=== PATIENT | female | born 1980 | race Caucasian/White ===

== ENCOUNTER → 2017-08-20 | Outpatient (CLI) | payer BC | END | disposition home or self-care (01) | LOC: LABWHC1 11:53 | PROVIDERS: ATTEND Otolaryngology | DX: J30.89 Other allergic rhinitis (principal) | CPT/HCPCS: 36415 ==

== ENCOUNTER → 2018-01-21 | Outpatient (CLI) | payer BC ==
--- NOTE | 2018-01-21 11:15 | US ---
EXAMINATION TYPE: US thyroid st tissue head/neck DATE OF EXAM: 01/21/2018 COMPARISON: 12/09/2012 CLINICAL HISTORY: hypothyroid E03.9, hx thyroid nodules E04.1,. Thyroid nodules, gael's disease , history of thyroid biopsy, on thyroid meds GLAND SIZE: Right Lobe: 5.7 x 1.5 x 1.9 cm Overall Parenchyma: heterogenous Left Lobe: 6.2 x 1.5 x 2.0 cm Overall Parenchyma: heterogeneous Isthmus Thickness: 0.7 cm NODULES RIGHT: # of nodules measured on right: 0 LEFT: # of nodules measured on left: 0 ISTHMUS: # of nodules measured in the isthmus: 0 Bilateral neck scanned, multiple small bilateral hypoechoic structures seen with largest on right harrison suring 1.1cm and largest on left measuring 1.0cm, probable lymph nodes. Left neck inferior to thyroid: 2 hypoechoic structures seen with larger of the 2 measuring 1.5 x 1.1 x 0.8cm, probable lymph nodes, nonenlarged and short axis. Enlarged heterogeneous gland without any definite nodules seen, small hyperechoic nodules seen on pre vious exam not clearly seen on today's exam. Diffuse increased vascularity throughout. IMPRESSION: Diffusely heterogenous, enlarged and hypervascular thyroid gland suggests underlying thyroiditis. The previously seen discrete small hyperechoic nodules on the prior are not identified on today's examin ation and may have related to gland heterogeneity in the prior.
== END | disposition home or self-care (01) ==
LOC: RADUSWWP 09:41
PROVIDERS: ATTEND Obstetrics & Gynecology
DX: Z09 Encounter for follow-up examination after completed treatment for conditions other than malignant neoplasm (principal); E04.9 Nontoxic goiter, unspecified; Z86.39 Personal history of other endocrine, nutritional and metabolic disease
CPT/HCPCS: 76536

== ENCOUNTER 2019-02-07 05:58 | Observation (INO) | payer BC ==
[2019-01-31 17:25] LABS: Basophils # (A) 0.1 k/uL (0-0.2); Basophils % (A) 1 %; Eosinophils # (A) 0.4 k/uL (0-0.7); Eosinophils % (A) 4 %; HCT 40.7 % (34.0-46.0); HGB 13.4 gm/dL (11.4-16.0); Lymphocytes % (A) 39 %; MCH 29.2 pg (25.0-35.0); MCHC 32.9 g/dL (31.0-37.0); MCV 88.7 fL (80.0-100.0); Mean Platelet Volume 7.8; Monocytes # (A) 0.5 k/uL (0-1.0); Monocytes % (A) 5 %; Neutrophils # (A) 5.1 k/uL (1.3-7.7); Neutrophils % (A) 49 %; Platelet Count 359 k/uL (150-450); RBC 4.59 m/uL (3.80-5.40); RDW 13.5 % (11.5-15.5); WBC 10.3 k/uL (3.8-10.6)
[2019-01-31 17:33] LABS: African American GFR (CKD) >90 (>60 ml/min/1.73 sqM); Anion Gap 8 mmol/L; Blood Urea Nitrogen 17 mg/dL (7-17); Carbon Dioxide 31 mmol/L (22-30); Chloride 100 mmol/L (98-107); Glucose 112 mg/dL (74-99); Sodium 139 mmol/L (137-145)
[~2019-02-07 05:58] MED LIST: DEXAMETHASONE SOD PHOSPHATE 10 MG/ML 1 ML VIAL IV ONE; HYDROmorphone 0.5 MG/0.5 ML SYRINGE IVP PRN; MIDAZOLAM 2 MG/2 ML VIAL IV PRN; ONDANSETRON 4 MG/2 ML VIAL IVP ONE; SCOPOLAMINE 1.5MG/72HR PATCH TRANSDERM ONE
[2019-02-07] MEDS: LACTATED RINGERS 1,000 ML IV SCH (06:41)
[2019-02-07] MEDS ORDERED: KETOROLAC 30 MG/ML 1 ML VIAL ONE (07:22)
[2019-02-07] MEDS ORDERED: ROCURONIUM BROMIDE 10 MG/ML 10 ML VIAL IV ONE (07:22)
[2019-02-07] MEDS ORDERED: PROPOFOL 10 MG/ML 20 ML VIAL IV ONE (07:22)
[2019-02-07] MEDS ORDERED: SUCCINYLCHOLINE CHLORIDE 100 MG/5 ML SYR IV ONE (07:22)
[2019-02-07] MEDS ORDERED: NEOSTIGMINE 1 MG/ML 10 ML VIAL ONE (07:22)
[2019-02-07] MEDS ORDERED: MIDAZOLAM 2 MG/2 ML VIAL ONE (07:22)
[2019-02-07] MEDS ORDERED: LIDOCAINE 1% INJ 10MG/ML (20 ML MDV) ONE (07:22)
[2019-02-07] MEDS ORDERED: fentaNYL (PF) 50 MCG/ML 2 ML AMP ONE (07:22)
[2019-02-07] MEDS ORDERED: GLYCOPYRROLATE 0.2 MG/ML 2 ML VIAL ONE (07:22)
[2019-02-07] MEDS: ceFAZolin IN SWFI 2 GM/20 ML SYRINGE IVP ONE ×2 (07:45→08:36)
[2019-02-07] MEDS ORDERED: BUPIVACAINE (PF) 0.5% 30 ML VIAL SQ ONE ×2 (08:36→09:41)
[2019-02-07] MEDS ORDERED: LACTATED RINGERS 1,000 ML IV ONE (08:59)
--- NOTE | 2019-02-07 09:47 | P.OP ---
Date of Procedure: 02/07/19 Preoperative Diagnosis: Dysfunctional uterine bleeding, dysmenorrhea, fibroid uterus Postoperative Diagnosis: Same Procedure(s) Performed: Robotic-assisted laparoscopic assisted vaginal hysterectomy, bilateral salpingectomy, cystoscopy Anesthesia: JASON Surgeon: Nerissa Kelly Automation Sales Manager #1: Zee Peters Estimated Blood Loss (ml): 25 IV fluids (ml): 1,100 Urine output (ml): 400 Pathology: other (Uterus, bilateral fallopian tubes) Condition: stable Disposition: PACU Operative Findings: Enlarged, globular uterus with anterior intramural fibroid. Normal-appearing bilateral ovaries. Grossly normal-appearing pelvis and upper abdomen. On diagnostic cystoscopy no evidence of bladder injury. Spontaneous flow of clear urine from each ureteral orifice. Description of Procedure: After the patient was met in the preoperative holding area and all questions were answered, she was taken to the operating room where anesthetic was administered without incident. Appropriate timeout procedure was undertaken. The patient was then positioned, prepped and draped in the dorsal lithotomy position. Speculum was placed in the vagina and the cervix was grasped with a single-tooth tenaculum. Uterus was sounded to 10 cm and was noted to be retroverted. The cervix was dilated to allow for placement of the [employer] uterine manipulator. This was placed without difficulty and a Solo catheter was then placed in the bladder. Attention was turned to the abdomen. In the supraumbilical 10 mm skin incision was made. The anterior abdominal wall was elevated using towel clamps and the Veress needle was inserted. Saline drop test indicated intraperitoneal placement. The abdomen was insufflated with CO2 gas to a filling pressure of 15 mm. The Veress needle was removed and the auger operator soft trocar was utilized to introduce the laparoscope. The laparoscope was inserted and intraperitoneal placement was confirmed. The patient was placed in Trendelenburg. Under direct visualization right and left abdominal 7 mm da Ayala ports were placed. A 10 mm upper left quadrant rehabilitation assistant port was placed. The bowel was swept out of the pelvis. The da Ayala robot was docked per protocol without difficulty. In arm #1 with the monopolar nicolasa and then the arm #2 with the bipolar [place] graspers. At the console the pelvis was inspected and the above findings were noted. The right fallopian tube was grasped and elevated. The mesosalpinx was then sequentially cauterized and cut it from the underlying ovary. The tubo-ovarian pedicle was then sequentially cauterized and cut. The round ligament was cauterized and cut and the anterior leaf of the broad ligament was entered. There was a large anterior component to the fibroid uterus however the bladder flap was created sharply. Attention was then turned to the left side where a similar process was undertaken to cauterize the mesosalpinx, tubo- ovarian pedicle and round ligament. The anterior leaf of the left broad ligament was entered and extended to meet the previously made incision from the right. The bladder was bluntly advanced and the underlying cervical cup was on the visualized. The uterine vasculature on the left was skeletonized and sequentially cauterized and cut on the right side the uterine vascular suture was also is sequentially cauterized and cut after being skeletonized. The uterus blanched appropriately. The bladder had been advanced bluntly with a Ray-Terence sponge out of the cervical field. Colpotomy was then made posteriorly and carried around circumferentially to create the entire colpotomy. The uterus was then delivered into the vagina. Electrocautery was utilized on the left aspect of the vaginal cuff to control small amount of bleeding there. The instruments were then exchanged for a blunt-tipped grasper and made a cut suture armored truck driver. aJda phillips's 9 and should self locking suture was utilized to then close the cuff in a running fashion. The course of the right and left ureters were noted to be visible and peristalsing. Instruments removed from the abdomen. There was no active bleeding noted at the vaginal cuff. Cystoscopy was then performed using the 40 cystoscope. The bladder distended without difficulty. Evidence of bleeding, defect or suture material. The right and left ureteral orifices seems were easily visualized and noted to be spilling clear urine spontaneously. Cystoscope was removed and the Solo catheter was replaced. The robot was undocked from the patient per protocol. The skin incisions were closed using 4-0 Vicryl suture in a subcutaneous fashion and infused with quarter percent Marcaine. Sponge stick was placed in the vagina and no active bleeding was noted from the vagina. The patient was awoken from anesthetic without incident and transported recovery area in stable condition. All counts reported to me as correct by the operating room staff.
[2019-02-07] MEDS ORDERED: HYDROmorphone 1 MG/ML 1 ML SYRINGE IVP ONE ×2 (10:00→10:05)
[2019-02-07] MEDS ORDERED: SIMETHICONE 80 MG CHEWABLE PO PRN (10:41)
[2019-02-07] MEDS ORDERED: LACTATED RINGERS 1,000 ML IV SCH (10:41)
[2019-02-07] MEDS ORDERED: METOCLOPRAMIDE 5 MG/ML 2 ML VIAL IVP PRN (10:41)
[2019-02-07] MEDS ORDERED: diphenhydrAMINE 50 MG/ML 1 ML VIAL IVP PRN (10:41)
[2019-02-07] MEDS ORDERED: ONDANSETRON 4 MG/2 ML VIAL IVP PRN (10:41)
[2019-02-07] MEDS ORDERED: IBUPROFEN 600 MG TAB PO PRN (10:41)
[2019-02-07] MEDS ORDERED: SENNOSIDES-DOCUSATE SODIUM 1 EACH TAB PO PRN (10:41)
[2019-02-07] MEDS ORDERED: Acetaminophen-Codeine 300-30mg TAB PO PRN (10:41)
[2019-02-07] MEDS ORDERED: ACETAMINOPHEN IV (For NPO) 1,000 MG in EMPTY BAG 1 BAG IVPB ONE (11:00)
[2019-02-07 11:42] VITALS: BMI 32.9
[2019-02-07] MEDS: KETOROLAC 30 MG/ML 1 ML VIAL IVP PRN (15:26)
[2019-02-08] MEDS: KETOROLAC 30 MG/ML 1 ML VIAL IVP PRN (04:21)
--- NOTE | 2019-02-08 08:03 | P.DS ---
Providers Date of admission: 02/08/19 06:19 Attending physician: Nerissa Kelly Primary care physician: Loy John Kut - Discharge Diagnosis(es) (1) Dysfunctional uterine bleeding Current Visit: Yes Status: Acute (2) Dysmenorrhea Current Visit: Yes Status: Acute (3) Fibroid uterus Current Visit: Yes Status: Acute Hospital Course: This is a 38-year-old woman with a long-standing history of worsening dysfunctional uterine bleeding, dysmenorrhea and a known fibroid uterus. She was admitted for definitive surgical management. On 02/07/2019 she went to the operating room where she underwent an uncomplicated robotic-assisted laparoscopic assisted vaginal hysterectomy with bilateral salpingectomy and diagnostic cystoscopy. Findings at the time of surgery were significant for an enlarged fibroid uterus and normal-appearing bilateral ovaries. Please refer to the operative report for details. The patient's postoperative course was unremarkable. By the evening of postoperative day 0 she was tolerating a general diet and was ambulating without difficulty. By the morning of postoperative day #1 her Solo catheter was discontinued and she was able to void spontaneously. She had scant vaginal bleeding. Her abdomen was soft and her incisions were dry and well healing. Her a.m. labs were pending. She was discharged home on postoperative day #1 with routine instructions for postoperative care and follow-up. Procedures: Robotic-assisted laparoscopic assisted vaginal hysterectomy and bilateral salpingectomy and diagnostic cystoscopy Patient Condition at Discharge: Good Plan - Discharge Summary Discharge Rx Participant: No New Discharge Prescriptions: No Action Thyroid,Pork [[place] Thyroid] 105 mg PO DAILY Discharge Medication List Thyroid,Pork [[place] Thyroid] 105 mg PO DAILY 02/01/19 [History] Follow up Appointment(s)/Referral(s): Nerissa Klely MD [STAFF PHYSICIAN] - 2 Weeks Activity/Diet/Wound Care/Special Instructions: Follow-up in the office 2 weeks postoperatively. May use utbr-dji-sizdahk ibuprofen 600 mg every 6 hours as needed for pain and or Tylenol extra strength every 8 hours as needed for pain. Call the office with any concerning signs or symptoms including heavy vaginal bleeding, foul vaginal discharge, severe abdominal or pelvic pain, fever greater than 100.5, redness or swelling of the lower extremities. No driving for 1 week. Nothing in the vagina specifically no intercourse for at least 8 weeks. No vigorous exercise or heavy lifting as discussed. Discharge Disposition: HOME SELF-CARE
[2019-02-08 08:19] LABS: Basophils # (A) 0.1 k/uL (0-0.2); Basophils % (A) 1 %; Eosinophils # (A) 0.2 k/uL (0-0.7); Eosinophils % (A) 1 %; HGB 12.5 gm/dL (11.4-16.0); Lymphocytes % (A) 31 %; MCH 30.4 pg (25.0-35.0); MCV 92.3 fL (80.0-100.0); Monocytes # (A) 0.6 k/uL (0-1.0); Monocytes % (A) 4 %; Neutrophils # (A) 9.7 k/uL (1.3-7.7); Neutrophils % (A) 62 %; Platelet Count 345 k/uL (150-450); RBC 4.11 m/uL (3.80-5.40); RDW 14.5 % (11.5-15.5); WBC 15.8 k/uL (3.8-10.6)
[2019-02-08 08:49] VITALS: BP 99/64; PULSE 82; RESP 18; TEMP 98.7
== END 2019-02-08 10:24 | disposition home or self-care (01) ==
LOC: OR 05:58 → 6PED 10:03 → OR 02-08 06:27
PROVIDERS: ADMIT Obstetrics & Gynecology; ATTEND Obstetrics & Gynecology
DX: D25.1 Intramural leiomyoma of uterus (principal); E06.3 Autoimmune thyroiditis; Z79.890 Hormone replacement therapy; Z82.49 Family history of ischemic heart disease and other diseases of the circulatory system; Z80.1 Family history of malignant neoplasm of trachea, bronchus and lung; Z80.8 Family history of malignant neoplasm of other organs or systems; Z80.0 Family history of malignant neoplasm of digestive organs; Z80.3 Family history of malignant neoplasm of breast
CPT/HCPCS: 58552; S2900; 80051; 81025; 82565; 82947; 84520; 85025; 86850; 86900; 86901; 87086; 88307

== ENCOUNTER → 2020-02-23 | Outpatient (CLI) | payer BC ==
--- NOTE | 2020-02-23 12:10 | MM ---
Reason for exam: screening (asymptomatic). Baseline mammogram. History: Patient is nulliparous. Took hormonal contraceptives for 23 years. Physical Findings: Nurse Summary: 0.2cm adenopathy in the right axilla x 3 and a 0.2cm adenopathy in the left breast x 1 (nurse TM). MG 3D Screening Mammo W/Cad Bilateral CC and MLO view(s) were taken. Finding: There are indeterminate, fine, regional calcifications in the upper outer quadrant, middle position of the right breast. These results were verbally communicated with the patient and result sheet given to the patient on 02/23/20. ASSESSMENT: Incomplete: need additional imaging evaluation, BI-RAD 0 RECOMMENDATION: Special view mammogram of the right breast.
--- NOTE | 2020-02-23 12:12 | MM ---
Reason for exam: additional evaluation requested from abnormal screening. History: Patient is nulliparous. Took hormonal contraceptives for 23 years. Physical Findings: Breast exam preformed at baseline screening. MG 3D Work Up W/Cad RT CC with magnification, ML with magnification, and ML view(s) were taken of the right breast. Finding: There are typically benign, fine, diffuse/scattered calcifications in the right breast. No suspicious cluster. These results were verbally communicated with the patient and result sheet given to the patient on 02/23/20. ASSESSMENT: Incomplete: need additional imaging evaluation, BI-RAD 0 RECOMMENDATION: Ultrasound of both breasts. (axilla)
--- NOTE | 2020-02-23 12:35 | USB ---
Reason for exam: additional evaluation requested from abnormal screening. History: Patient is nulliparous. Took hormonal contraceptives for 23 years. US Breast Axilla RT Right breast axilla ultrasound demonstrates a 7 x 3mm oval, hypoechoic lesion at axilla BB, a 8 x 5mm oval, hypoechoic lesion at axilla BB and a 5 x 3mm oval, hypoechoic lesion at axilla BB. These results were verbally communicated with the patient and result sheet given to the patient on 02/23/20. ASSESSMENT: Probably benign, BI-RAD 3 RECOMMENDATION: Follow-up diagnostic mammogram of the right breast in 6 months. Manage patient on a clinical basis.
--- NOTE | 2020-02-23 12:37 | USB ---
Reason for exam: additional evaluation requested from abnormal screening. History: Patient is nulliparous. Took hormonal contraceptives for 23 years. US Breast Axilla LT Left limited breast ultrasound including focal area of concern, retroareolar and axilla demonstrates a 6 x 4mm oval, hypoechoic lesion at axilla BB. Corresponds to palpable abnormality, may be sebaceous cysts. These results were verbally communicated with the patient and result sheet given to the patient on 02/23/20. ASSESSMENT: Probably benign, BI-RAD 3 RECOMMENDATION: Clinical management of the left breast. Manage patient on a clinical basis.
== END | disposition home or self-care (01) ==
LOC: RADMAMWWP 10:05
PROVIDERS: ATTEND Obstetrics & Gynecology
DX: Z12.31 Encounter for screening mammogram for malignant neoplasm of breast (principal); Z80.3 Family history of malignant neoplasm of breast; R92.8 Other abnormal and inconclusive findings on diagnostic imaging of breast
CPT/HCPCS: 77061; 77063; 77065; 77067

== ENCOUNTER → 2020-08-27 | Outpatient (CLI) | payer BC ==
--- NOTE | 2020-08-27 09:37 | MM ---
Reason for exam: follow-up at short interval from prior study. Last mammogram was performed 6 months ago. History: Patient is nulliparous. Family history of breast cancer in maternal grandmother at age 78. Took hormonal contraceptives for 23 years. Physical Findings: Nurse did not find any significant physical abnormalities on exam. MG 3D Diag Mammo W/Cad RT CC and MLO view(s) were taken of the right breast. Prior study comparison: February 23, 2020, right breast MG 3d work up w/cad RT. February 23, 2020, bilateral MG 3d screening mammo w/cad. There are scattered fibroglandular densities. No significant new findings when compared with previous films. These results were verbally communicated with the patient and result sheet given to the patient on 08/27/20. ASSESSMENT: Probably benign, BI-RAD 3 RECOMMENDATION: Return to routine screening mammogram schedule for both breasts. Back on schedule for February 2021.
== END | disposition home or self-care (01) ==
LOC: RADMAMWWP 08:53
PROVIDERS: ATTEND Obstetrics & Gynecology
DX: R92.8 Other abnormal and inconclusive findings on diagnostic imaging of breast (principal)
CPT/HCPCS: 77061; 77065

== ENCOUNTER → 2021-02-28 | Outpatient (CLI) | payer BC ==
--- NOTE | 2021-03-06 10:55 | MM ---
Reason for exam: screening (asymptomatic). Last mammogram was performed 6 months ago. History: Patient is nulliparous. Family history of breast cancer in maternal grandmother at age 78. Took hormonal contraceptives for 23 years. Physical Findings: A clinical breast exam by your physician is recommended on an annual basis and results should be correlated with mammographic findings. MG 3D Screening Mammo W/Cad Bilateral CC and MLO view(s) were taken. Prior study comparison: August 27, 2020, right breast MG 3d diag mammo w/cad RT. February 23, 2020, right breast MG 3d work up w/cad RT. There are scattered fibroglandular densities. There is no discrete abnormality. No significant changes when compared with prior studies. ASSESSMENT: Negative, BI-RAD 1 RECOMMENDATION: Routine screening mammogram of both breasts in 1 year.
== END | disposition home or self-care (01) ==
LOC: RADMAMWWP 12:41
PROVIDERS: ATTEND Obstetrics & Gynecology
DX: Z12.31 Encounter for screening mammogram for malignant neoplasm of breast (principal); Z80.3 Family history of malignant neoplasm of breast
CPT/HCPCS: 77063; 77067

== ENCOUNTER → 2021-08-06 | Outpatient (CLI) | payer BC ==
--- NOTE | 2021-08-07 08:08 | US ---
EXAMINATION TYPE: US thyroid st tissue head/neck DATE OF EXAM: 08/06/2021 COMPARISON: US 01/21/2018 CLINICAL HISTORY: E03.9 HX OF THYROID NODULE. Takes thyroid medication; just received COVID Booster o n 08/03/2021. GLAND SIZE: Right Lobe: 4.7 x 1.4 x 1.4 cm Overall Parenchyma: heterogenous Left Lobe: 5.6 x 1.8 x 1.3 cm, thyroid lobe extension is noted inferiorly Overall Parenchyma: heterogeneous Isthmus Thickness: 0.8 cm No distinct thyroid nodules are seen in heterogeneous thyroid gland. RIGHT: # of nodules measured on right: 0 LEFT: # of nodules measured on left: 0 ISTHMUS: # of nodules measured in the isthmus: 0 Bilateral neck scanned: couple of lymph nodes are seen inferior and lateral to right thyroid with la rger lymph node = 0.8 x 0.4 x 0.3cm. IMPRESSION: Nonspecific diffuse glandular heterogeneity without distinct nodule appreciated.
== END | disposition home or self-care (01) ==
LOC: RADUSWWP 16:14
PROVIDERS: ATTEND Obstetrics & Gynecology
DX: E07.89 Other specified disorders of thyroid (principal)
CPT/HCPCS: 76536

== ENCOUNTER → 2022-03-02 | Outpatient (CLI) | payer BC ==
--- NOTE | 2022-03-03 08:41 | MM ---
Reason for Exam: Screening (asymptomatic). Last screening mammogram was performed 12 month(s) ago. Patient History: Menarche at age 13. Patient has no children. Hysterectomy at age 38. Patient used Hormonal Contraceptives for 23 years. Maternal grandmother had breast cancer, age 78. Risk Values: Ruth 5 year model risk: 0.7%. NCI Lifetime model risk: 10.0%. Prior Study Comparison: 02/23/2020 Right Diagnostic Mammogram, [facility]. 02/23/2020 Left Diagnostic Ultrasound, [facility]. 08/27/2020 Right Diagnostic Mammogram, [facility]. 02/28/2021 Bilateral Screening Mammogram, [facility]. Tissue Density: The breast tissue is heterogeneously dense. This may lower the sensitivity of mammography. Findings: Analyzed By CAD. There is no suspicious group of microcalcifications or new suspicious mass in either breast. Stable chronic nodularity right breast. Benign calcifications. Chronic nodularity in the right stable. Asymmetric density central margin of the right breast. Overall Assessment: Incomplete: need additional imaging evaluation, BI-RAD 0 Management: Diagnostic Mammogram of the right breast. A clinical breast exam by your physician is recommended on an annual basis and results should be correlated with mammographic findings. Electronically signed and approved by: Fredis Venegas M.D. Radiologis
== END | disposition home or self-care (01) ==
LOC: RADMAMWWP 10:57
PROVIDERS: ATTEND Obstetrics & Gynecology
DX: Z12.31 Encounter for screening mammogram for malignant neoplasm of breast (principal); R92.1 Mammographic calcification found on diagnostic imaging of breast; Z80.3 Family history of malignant neoplasm of breast
CPT/HCPCS: 77063; 77067

== ENCOUNTER → 2022-03-09 | Outpatient (CLI) | payer BC ==
--- NOTE | 2022-03-09 10:44 | MM ---
Reason for Exam: Additional evaluation requested from abnormal screening. Last screening mammogram was performed less than 1 month ago. Patient History: Menarche at age 13. Patient has no children. Hysterectomy at age 38. Patient used Hormonal Contraceptives for 23 years. Maternal grandmother had breast cancer, age 78. Risk Values: Ruth 5 year model risk: 0.7%. NCI Lifetime model risk: 10.0%. Prior Study Comparison: 02/23/2020 Bilateral Screening Mammogram, [facility]. 02/23/2020 Right Diagnostic Mammogram, [facility]. 02/23/2020 Right Diagnostic Ultrasound, [facility]. 02/23/2020 Left Diagnostic Ultrasound, [facility]. 08/27/2020 Right Diagnostic Mammogram, [facility]. 02/28/2021 Bilateral Screening Mammogram, [facility]. 03/02/2022 Bilateral MG 3D screening mammo w/cad, [facility]. Tissue Density: Right: There are scattered fibroglandular densities. Findings: Analyzed By CAD. The central outer focal asymmetry becomes less defined on spot images with an appearance similar to older priors. No significant change from prior exams. This is compatible with a benign etiology. Overall Assessment: Benign, BI-RAD 2 Management: Screening Mammogram of both breasts in 1 year. 1. Patient should continue monthly self breast exams. 2. A clinical breast exam by your physician is recommended on an annual basis. 3. This exam should not preclude additional follow-up of suspicious palpable abnormalities. Results were given to the patient verbally at the time of exam. Electronically signed and approved by: Tiffany Brunner M.D. Radiologist
== END | disposition home or self-care (01) ==
LOC: RADMAMWWP 10:16
PROVIDERS: ATTEND Obstetrics & Gynecology
DX: R92.8 Other abnormal and inconclusive findings on diagnostic imaging of breast (principal); Z80.3 Family history of malignant neoplasm of breast
CPT/HCPCS: 77061; 77065

== ENCOUNTER → 2023-03-10 | Outpatient (CLI) | payer BC ==
--- NOTE | 2023-03-12 08:13 | MM ---
Reason for Exam: Screening (asymptomatic). Last mammogram was performed 1 year(s) and 1 month(s) ago. Patient History: Menarche at age 13. Patient has no children. Right ovary removed at age 42. Hysterectomy at age 38. Patient used Hormonal Contraceptives for 23 years. Maternal grandmother had breast cancer, age 78. Risk Values: Ruth 5 year model risk: 0.7%. NCI Lifetime model risk: 9.9%. Prior Study Comparison: 02/28/2021 Bilateral Screening Mammogram, [facility]. 03/02/2022 Bilateral MG 3D screening mammo w/cad, [facility]. 03/09/2022 Right MG 3D work up w/cad RT, [facility]. Tissue Density: There are scattered fibroglandular densities. Findings: Analyzed By CAD. No suspicious group of microcalcifications within either breast. Chronic nodularity within both breasts. There are 2 adjacent asymmetries identified within the central right breast only on the CC view at middle and posterior depths. No new suspicious mass within the left breast. Benign round appearing calcifications within both breasts. Overall Assessment: Incomplete: need additional imaging evaluation, BI-RAD 0 Management: Diagnostic Mammogram of the right breast. A clinical breast exam by your physician is recommended on an annual basis and results should be correlated with mammographic findings. [facility] will attempt to contact patient to return for supplemental views and ultrasound if indicated. Note on Ruth scores and lifetime risk: 1. A Ruth score greater than 3% is considered moderate risk. If this is the case, consider specialist referral to assess eligibility for a risk reducing agent. If overall lifetime risk for the development of breast cancer is 20% or higher, the patient may qualify for future screening with alternating mammogram and breast MRI. Electronically signed and approved by: Tommie Villafuerte D.O.
== END | disposition home or self-care (01) ==
LOC: RADMAMWWP 10:14
PROVIDERS: ATTEND Obstetrics & Gynecology
DX: Z12.31 Encounter for screening mammogram for malignant neoplasm of breast (principal); Z80.3 Family history of malignant neoplasm of breast
CPT/HCPCS: 77063; 77067

== ENCOUNTER → 2023-03-22 | Outpatient (CLI) | payer BC ==
--- NOTE | 2023-03-22 08:52 | MM ---
Reason for Exam: Additional evaluation requested from abnormal screening. Last screening mammogram was performed less than 1 month ago. Patient History: Menarche at age 13. Patient has no children. Right ovary removed at age 42. Hysterectomy at age 38. Patient used Hormonal Contraceptives for 23 years. Maternal grandmother had breast cancer, age 78. Risk Values: Ruth 5 year model risk: 0.7%. NCI Lifetime model risk: 9.9%. Prior Study Comparison: 02/23/2020 Bilateral Screening Mammogram, [facility]. 02/23/2020 Right Diagnostic Mammogram, [facility]. 02/23/2020 Right Diagnostic Ultrasound, [facility]. 02/23/2020 Left Diagnostic Ultrasound, [facility]. 08/27/2020 Right Diagnostic Mammogram, [facility]. 02/28/2021 Bilateral Screening Mammogram, [facility]. 03/02/2022 Bilateral MG 3D screening mammo w/cad, [facility]. 03/09/2022 Right MG 3D work up w/cad RT, [facility]. 03/10/2023 Bilateral MG 3D screening mammo w/cad, [facility]. Tissue Density: Right: There are scattered fibroglandular densities. Findings: Analyzed By CAD. The areas persist felt to be posterior nipple line measuring 6.0 from the nipple and measuring 5 mm and slightly medial 3.7 cm nipple and measuring 8 mm. These are less well appreciated on spot compression imaging on today's exam or on lateral medial imaging. Overall Assessment: Incomplete: need additional imaging evaluation, BI-RAD 0 Management: Diagnostic Breast Ultrasound of the right breast. Results were given to the patient verbally at the time of exam. Patient should continue monthly self-breast exams. A clinical breast exam by your physician is recommended on an annual basis. This exam should not preclude additional follow-up of suspicious palpable abnormalities. Note on Ruth scores and lifetime risk: 1. A Ruth score greater than 3% is considered moderate risk. If this is the case, consider specialist referral to assess eligibility for a risk reducing agent. 2. If overall lifetime risk for the development of breast cancer is 20% or higher, the patient may qualify for future screening with alternating mammogram and breast MRI. Electronically signed and approved by: Cristóbal Higgins DO
--- NOTE | 2023-03-22 09:28 | USB ---
Reason for Exam: Additional evaluation requested from abnormal screening. Patient History: Menarche at age 13. Patient has no children. Right ovary removed at age 42. Hysterectomy at age 38. Patient used Hormonal Contraceptives for 23 years. Maternal grandmother had breast cancer, age 78. Risk Values: Ruth 5 year model risk: 0.7%. NCI Lifetime model risk: 9.9%. Technique: Method: Targeted. Prior Study Comparison: 03/02/2022 Bilateral MG 3D screening mammo w/cad, [facility]. 03/09/2022 Right MG 3D work up w/cad RT, [facility]. 03/10/2023 Bilateral MG 3D screening mammo w/cad, [facility]. Findings: The lower section of the breast of the right breast, the axilla of the right breast and the retroareolar of the right breast were scanned. Imaged: Ultrasound imaging of: Area of concern, retroareolar region and axilla. Hypoechoic lesion at 7:00 6 cm from nipple measuring up to 4 mm corresponding with the smaller lesion present on mammogram. The larger lesion measuring up to 8 mm at 4 cm from nipple is not definitively visualized. Overall Assessment: Suspicious, BI-RAD 4 Management: Ultrasound Core Biopsy of the right breast. Diagnostic Mammogram of the right breast in 6 months. Six-month follow-up for larger lesion seen on right cc view not visualized on ultrasound. Measuring up to 8 mm and approximately 4 cm from the nipple this could relate to skin lesion such as a mole. A clinical breast exam by your physician is recommended on an annual basis and results should be correlated with mammographic findings. This exam should not preclude additional follow-up of suspicious palpable abnormalities. Results were given to the patient verbally at the time of exam. Electronically signed and approved by: Cristóbal Higgins DO
== END | disposition home or self-care (01) ==
LOC: RADMAMWWP 08:17
PROVIDERS: ATTEND Obstetrics & Gynecology
DX: R92.8 Other abnormal and inconclusive findings on diagnostic imaging of breast (principal); Z80.3 Family history of malignant neoplasm of breast
CPT/HCPCS: 77061; 77065

== ENCOUNTER → 2023-03-31 | Day surgery (SDC) | payer BC ==
--- NOTE | 2023-04-02 14:04 | MM ---
Reason for Exam: Post Procedure Mammogram. Last screening mammogram was performed less than 1 month ago. Patient History: Menarche at age 13. Patient has no children. Right ovary removed at age 42. Hysterectomy at age 38. Patient used Hormonal Contraceptives for 23 years. Maternal grandmother had breast cancer, age 78. Risk Values: Ruth 5 year model risk: 0.7%. NCI Lifetime model risk: 9.9%. Prior Study Comparison: 03/09/2022 Right MG 3D work up w/cad RT, [facility]. 03/10/2023 Bilateral MG 3D screening mammo w/cad, [facility]. 03/22/2023 Right MG 3D work up w/cad RT, [facility]. Tissue Density: Right: There are scattered fibroglandular densities. Pathology Description: Location: 7 o'clock. Marker Left Behind. Needle Type: Mammotome Cores: 3 Skin Nicks: 1 Gauge: 13 The procedure of ultrasound guided core biopsy was explained to the patient. Benefits, alternatives, and risks were discussed. An informed consent was then obtained. A timeout was performed. The patient was placed in supine positioning for imaging and for the procedure. The overlying skin was prepped and draped in usual sterile fashion. Lidocaine was used as anesthetic into the skin and subcutaneous tissue up to area of concern in the right breast. A small skin jade was made with surgical scalpel. Under ultrasound guidance, a 12-gauge vacuum assisted biopsy gun device was used to obtain 3 core samples. A biopsy clip was left in lesion. Hydromark core marker was placed. The patient tolerated the procedure well without any immediate complication. The patient was kept in the radiology department for short stay after the procedure and then discharged home in stable condition. Postprocedure mammogram: The patient was transferred to mammography for physician ordered post procedure mammogram for clip placement verification. Clip marker is in the middle position lower outer quadrant. Impression: Successful ultrasound guided core biopsy of area of concern in the right breast, full pathology results to follow. Recommendations: 1. Recommendations are pending pathology results. Pathology Results: Result: Benign, Fibrocystic change. RIGHT BREAST, 7:00 POSITION, ULTRASOUND GUIDED CORE BIOPSY: Fibrocystic change with fibrosis and rare microcalcification. Fibrosis may represent fibrous scar. Current specimen negative for diagnostic in situ or invasive carcinoma. Overall Assessment: Benign Assessment: MG diagnostic mammo RT wo CAD - Right: Benign, BI-RAD 2. Management: Diagnostic Mammogram of the right breast in 6 months. Electronically signed and approved by: Howard Lopez D.O. Radiologis
== END ==
LOC: RADUSWWP 07:45
PROVIDERS: ATTEND Surgery
DX: N60.31 Fibrosclerosis of right breast (principal); Z80.3 Family history of malignant neoplasm of breast; Z90.721 Acquired absence of ovaries, unilateral
CPT/HCPCS: 88305; 77065; 19083; A4648

== ENCOUNTER → 2023-10-08 | Outpatient (CLI) | payer BC ==
--- NOTE | 2023-10-08 14:47 | MM ---
Reason for Exam: Follow-up at short interval from prior study. Last screening mammogram was performed 7 month(s) ago. Patient History: Menarche at age 13. Patient has no children. Right ovary removed at age 42. Hysterectomy at age 38. Patient used Hormonal Contraceptives for 23 years. 03/31/2023, Benign US biopsy breast VAD RT on the right side. Maternal grandmother had breast cancer, age 78. Risk Values: Ruth 5 year model risk: 1.1%. NCI Lifetime model risk: 12.0%. Prior Study Comparison: 03/10/2023 Bilateral MG 3D screening mammo w/cad, [facility]. 03/22/2023 Right MG 3D work up w/cad RT, [facility]. 03/31/2023 Right MG diagnostic mammo RT wo CAD, [facility]. Tissue Density: Right: There are scattered fibroglandular densities. Findings: Analyzed By CAD. The pattern is symmetrical. No significant interval change is evident. Postbiopsy clip is within the lower outer quadrant right breast. Nodularity is present and appears stable. No suspicious groups of microcalcifications, spiculated or lobular masses, architectural distortion or other secondary signs of malignancy are mammographically apparent. Overall Assessment: Benign, BI-RAD 2 Management: Screening Mammogram of both breasts in 6 months. A negative mammogram report should not preclude additional follow up of suspicious palpable abnormalities. Patient should continue monthly self breast exam. A clinical breast exam by your physician is recommended on an annual basis and results should be correlated with mammographic findings. Electronically signed and approved by: Howard Lopez D.O. Radiologis
== END | disposition home or self-care (01) ==
LOC: RADMAMWWP 14:13
PROVIDERS: ATTEND Surgery
DX: R92.321 Mammographic fibroglandular density, right breast (principal); Z80.3 Family history of malignant neoplasm of breast
CPT/HCPCS: 77061; 77065

== ENCOUNTER → 2024-04-11 | Outpatient (CLI) | payer BC ==
--- NOTE | 2024-04-16 11:45 | MM ---
Reason for Exam: Screening (asymptomatic). Last mammogram was performed 1 year(s) and 1 month(s) ago. Patient History: Menarche at age 13. Patient has no children. Right ovary removed at age 42. Hysterectomy at age 38. Currently using Estrogen, starting at age 43. Currently using Progesterone, starting at age 43. Patient used Hormonal Contraceptives for 23 years. 03/31/2023, Benign US biopsy breast VAD RT on the right side. Maternal grandmother had breast cancer, age 78. Risk Values: Ruth 5 year model risk: 1.2%. NCI Lifetime model risk: 11.8%. Prior Study Comparison: 03/22/2023 Right MG 3D work up w/cad RT, [facility]. 03/31/2023 Right MG diagnostic mammo RT wo CAD, [facility]. 10/08/2023 Right MG 3D diag mammo w/cad RT, [facility]. Tissue Density: The breasts are heterogeneously dense, which may obscure small masses. Findings: Analyzed By CAD. Right breast: There is no suspicious group of microcalcifications or new suspicious mass. Left breast: There is no suspicious group of microcalcifications or new suspicious mass. Overall Assessment: Negative, BI-RAD 1 Management: Screening Mammogram of both breasts in [address] [facility] will attempt to contact patient to return for supplemental views and ultrasound if indicated. Patient should continue monthly self-breast exams. A clinical breast exam by your physician is recommended on an annual basis. This exam should not preclude additional follow-up of suspicious palpable abnormalities. Note on Ruth scores and lifetime risk: 1. A Ruth score greater than 3% is considered moderate risk. If this is the case, consider specialist referral to assess eligibility for a risk reducing agent. 2. If overall lifetime risk for the development of breast cancer is 20% or higher, the patient may qualify for future screening with alternating mammogram and breast MRI. Electronically signed and approved by: Cristóbal Higgins DO
== END | disposition home or self-care (01) ==
LOC: RADMAMWWP 09:56
PROVIDERS: ATTEND Obstetrics & Gynecology
DX: Z12.31 Encounter for screening mammogram for malignant neoplasm of breast
CPT/HCPCS: 77063; 77067